=== PATIENT | female | born 1985 | race Caucasian/White ===

== ENCOUNTER → 2020-07-22 09:15 | Outpatient (BNVA) | payer OTHER, SELFPAY | PROVIDERS: PCP Nurse Practitioner Family; Referring Provider Nurse Practitioner Family; Visit Provider Orthopaedic Surgery | DX: M25.461 Effusion, right knee (principal) | CPT/HCPCS: 20610; 99213; J1100 ==

== ENCOUNTER 2020-08-03 15:36 | Outpatient (REF) | payer OTHER, SELFPAY ==
--- NOTE | 2020-08-03 15:39 | MR_ITS ---
EXAMINATION: MR KNEE WITHOUT CONTRAST, RIGHT CLINICAL INFORMATION: Effusion. Feels buckling. Pain in the knee with symptoms x 2 years. No injury. COMPARISON: MRI dated 07/24/2017 TECHNIQUE: MRI of the knee without contrast was performed using routine sequences on a high-field scanner. FINDINGS: MENISCI: Medial Meniscus: Intact. Lateral Meniscus: Intact. LIGAMENTS: Cruciate: Intact. Collateral: Intact. EXTENSOR MECHANISM: Intact. ARTICULAR CARTILAGE/BONE: Patellofemoral Compartment: There is a region of chondral fissuring and surface irregularity at the inferior aspect of the medial trochlear facet measuring 1.2 cm transversely. No discrete chondral defects are identified. Medial Compartment: Normal. Lateral Compartment: Normal. JOINT FLUID AND BURSAE: A heterogeneous focus of low signal intensity material is again seen in the medial recess at the patellofemoral compartment with extension into the medial aspect of the patellofemoral compartment joint line. This measures 3.4 x 1.3 x 5.1 cm (transverse x AP x longitudinal), increased in size from 2.3 x 1.3 x 1.8 cm on the prior study. Peripheral foci of more pronounced low signal intensity are present within this lesion inferiorly and laterally. There is minimal pes anserine bursitis. IMPRESSION: Significant growth of the 5.1 cm heterogeneous, low signal intensity intra-articular lesion at the medial recess in the patellofemoral compartment. In the absence of multifocality and clear signs of chronic hemarthrosis, localized nodular synovitis is favored, though pigmented villonodular synovitis (PVNS) is a reasonable possibility and cannot be excluded based upon the imaging findings. Chondral fissuring at the inferior aspect of the medial trochlear facet, adjacent to the aforementioned synovial abnormality.
== END 2020-08-03 15:37 | disposition home or self-care (01) ==
LOC: HO.MRI 15:36
PROVIDERS: Visit Provider Orthopaedic Surgery
DX: M25.469 Effusion, unspecified knee (principal); M25.69 Stiffness of other specified joint, not elsewhere classified
CPT/HCPCS: 73721

== ENCOUNTER → 2020-08-19 09:03 | Outpatient (BNVA) | payer OTHER, SELFPAY | PROVIDERS: Visit Provider Orthopaedic Surgery | DX: M12.261 Villonodular synovitis (pigmented), right knee (principal) | CPT/HCPCS: 99212 ==

== ENCOUNTER 2020-11-02 06:00 | Day surgery (SDC) | payer OTHER, SELFPAY ==
[2020-10-27 11:26] VITALS: BMI 32.9
--- NOTE | 2020-11-01 08:32 | HO.ANESPROP2 ---
Documented by User: Ely Seo 11/01/20 08:33 HPI - Anesthesia Eval Consult details Narrative: 34yo F for Knee Arthroscopy with Synovectomy PMFSH Past Medical History Medical History Asthma Hypertension Knee effusion Villonodular synovitis Family History Family History Father No problems noted. Mother No problems noted. Brother No problems noted. Brother No problems noted. Daughter No problems noted. Son No problems noted. Sister No problems noted. Sister No problems noted. Sister No problems noted. Sister No problems noted. Sister No problems noted. Sister No problems noted. Sister No problems noted. Surgical History Surgical History History of carpal tunnel release History of hysterectomy Social History Social History Alcohol intake: current Alcohol intake frequency: holidays/special occasions only Smoking Status: Never smoker Advance Directives: No Advance Directives Information Provided: No Advance Directives on File: No Current occupational status: employed Current occupation: [employer]-right [employer] Meds Allergies Allergy/AdvReac Type Severity Reaction Status Date / Time No Known Allergies Allergy Verified 11/02/20 06:11 Home Medications Medication Instructions Recorded Confirmed Type albuterol sulfate 2 puff INHALATION Q4-6H PRN 10/27/20 10/27/20 History cholecalciferol (vitamin D3) 25 mcg PO DAILY 10/27/20 10/27/20 History [Vitamin D3] fluticasone propion-salmeterol 1 inh INHALATION BID 10/27/20 10/27/20 History [Wixela Inhub] hydrochlorothiazide 10/27/20 10/27/20 History montelukast [Singulair] 10 mg PO BEDTIME 10/27/20 10/27/20 History Exam Exam Date and Time: November 01, 2020 0832 Height,Weight and Vital Signs: Height 5 ft 2 in Weight 81.647 kg Assessment and Plan Assessment Anesthesia Assessment: Chart Reviewed Documented by User: Fazal Mccurdy MD 11/02/20 07:32 [facility] Past Medical History Medical History Asthma Hypertension Knee effusion Villonodular synovitis Family History Family History Father No problems noted. Mother No problems noted. Brother No problems noted. Brother No problems noted. Daughter No problems noted. Son No problems noted. Sister No problems noted. Sister No problems noted. Sister No problems noted. Sister No problems noted. Sister No problems noted. Sister No problems noted. Sister No problems noted. Surgical History Surgical History History of carpal tunnel release History of hysterectomy Social History Social History Alcohol intake: current Alcohol intake frequency: holidays/special occasions only Smoking Status: Never smoker Advance Directives: No Advance Directives Information Provided: No Advance Directives on File: No Current occupational status: employed Current occupation: [employer]right [employer] Allergies Allergy/AdvReac Type Severity Reaction Status Date / Time No Known Allergies Allergy Verified 11/02/20 06:11 Home Medications Medication Instructions Recorded Confirmed Type albuterol sulfate 2 puff INHALATION Q4-6H PRN 10/27/20 10/27/20 History cholecalciferol (vitamin D3) 25 mcg PO DAILY 10/27/20 10/27/20 History [Vitamin D3] fluticasone propion-salmeterol 1 inh INHALATION BID 10/27/20 10/27/20 History [Wixela Inhub] hydrochlorothiazide 10/27/20 10/27/20 History montelukast [Singulair] 10 mg PO BEDTIME 10/27/20 10/27/20 History Exam Airway Mallampati Class: II TM Dist: >3cm Neck ROM: Full Loose/Missing/Broken Teeth: No Heart: RRR Lungs: NL Other: AO Assessment and Plan Assessment Anesthesia Assessment: Anesthesia Plan Discussed and Chart Reviewed Final Anesthetic Review NPO: Yes ASA Class: II Final Preanesthetic Review: No Changes in Pt Med Stat, Meds/Allgs Chart Reviewed, Consent Obtained/Reviewed and Anes Risks/Benef Reviewed Patient Risk: Intermediate Procedure Risk: Low Anesthetic Plan Anesthetic Plan: GA Disposition: Standard PACU
[2020-11-02] VITALS (7 sets, daily range): BP systolic 119–140; BP diastolic 66–84; PULSE 82–105; RESP 16–22; TEMP 36.7–37.2; O2SAT 94–100
[2020-11-02] MEDS: Lactated Ringers 1,000 ML 100 ML IVCONT (06:36)
--- NOTE | 2020-11-02 07:18 | MHC.SHP ---
Pre-Procedural Eval Section A The patient is an INPATIENT: No Changes since office visit: Yes Patient answered all questions; No Cold of Flu in the past 2 weeks, No New Medical Problems and No Changes in Medication The History & Physical has been completed within 30 days and I have reviewed it.: Yes Section B Chief Complaint: Villondular Synovitis Allergies: Allergies Allergy/AdvReac Type Severity Reaction Status Date / Time No Known Allergies Allergy Verified 11/02/20 06:11 Plan I have reviewed the history and physical and performed a pertinent physical examination on my patient. No changes have occurred unless specified.
[2020-11-02] MEDS: ceFAZolin Sodium/Dextrose,Iso 2 GM/50 ML PIGGYBACK IV (07:37)
--- NOTE | 2020-11-02 08:03 | PM.OP ---
Brief Operative Note Date of Service: 11/02/20 Pre-op diagnosis: right knee PVNS Post-op diagnosis: same Procedure: Resection PVNS, arthroscopic Implants: none Surgeon: Lon Elaine MD Anesthesia: GETA and local Estimated blood loss (mL): 0 Tourniquet time (min): 17 IV fluids (mL): 500 Pathology: other (Synovial mass) Condition: stable Disposition: PACU
[2020-11-02] MEDS: ondansetron HCL 4 MG/2 ML VIAL IVPUSH (08:49)
[2020-11-02] MEDS: Acetaminophen 325 MG TABLET 650 MG PO (08:49)
[2020-11-02] MEDS: oxyCODONE HCl Immed Release 5 MG TABLET PO (08:51)
--- NOTE | 2020-11-02 10:06 | HO.POSTANES ---
Post Anesthesia Evaluation Post Anesthesia Evaluation Vital Signs: Vital Signs Temp Pulse Resp BP Pulse Ox 11/02/20 09:02 99.0 F 93 20 119/78 96 11/02/20 08:47 82 22 H 136/82 99 11/02/20 08:33 96 22 H 126/84 99 11/02/20 08:18 92 18 125/70 94 11/02/20 08:13 101 H 18 128/78 100 11/02/20 08:07 98.1 F 105 H 18 121/66 99 11/02/20 06:30 98.8 F 84 16 140/80 H 98 Anesthesia: General LMA Mental Status: Awake Pain Control: Satisfactory Nausea/Vomiting: None Hydration: Adequate Anesthesia-Related Issues: No Anes. Related Issues (Pt felt dizzy and diaphoretic in D/C area. Improved with cool cloth, fan, rest. No nausea. Improved over time of observation by RN.)
--- NOTE | 2020-11-02 11:41 | PC.NURSE ---
Pallor and diaphoresis at 0925, moved to recliner with leg elevated 120/74-84-16. Husbandry Person called, pt feeling better after 1/2 hour. Fitted for and instructed in crutch walking. VSS 130/62-74-16 @ 10:25, warm, dry, color improved. Feels ready for discharge home. Evaluated and signed out by Anesthesia.
--- NOTE | 2020-11-04 13:43 | OP_ITS ---
SURGEON: Lon Elaine MD PREOPERATIVE DIAGNOSIS: Right knee poly villonodular sclerosis. POSTOPERATIVE DIAGNOSIS: Right knee poly villonodular sclerosis. PROCEDURE PERFORMED: Resection of focal PVNS, arthroscopic. ESTIMATED BLOOD LOSS: None. COMPLICATIONS: ANESTHESIA: General and local. ASSISTANTS: Domingo Acharya. SPECIMENS: TOURNIQUET TIME: 17 minutes. FLUIDS: 500. PATHOLOGY: Sent to lab. DESCRIPTION OF PROCEDURE: The patient was brought to the operating room, placed supine on the operative table and prepped and draped in standard sterile fashion. Time-out was called to identify proper site, proper procedure, proper surgeon. IV antibiotics per weight was administered. I began by exsanguinating the limb and insufflating tourniquet to 300 mmHg. I then made a standard anterolateral stab incision and placed my blunt trocar atraumatically into the patellofemoral joint. Immediately evident was a large anteromedial synovial mass. The surrounding synovium looked healthy. I flexed the knee and made an establishment of anteromedial portal under direct visualization. I then enlarged slightly with a 15 blade and used a grasper to remove large portion of the synovial mass. This was sent to pathology. The remainder was removed with a combination of cautery and shaver. Of note, the patellofemoral joint was pristine. Medial and lateral compartments were also pristine, where for the most part of the pristine, there was a grade 2 lesion in the anterolateral aspect of the medial femoral condyle. This was debrided down, but was superficial. ACL was intact. Synovial mass was essentially in the anteromedial knee space anterior to the femoral condyle. The remaining synovium appeared healthy and normal. All instrumentation was then removed. Portals were closed with nylon. The patient was placed in sterile dressing, extubated, and brought to the recovery room in stable condition. There were no known complications. MD RANDELL Flower/RUBENL / [id number]
== END 2020-11-02 10:35 | disposition home or self-care (01) ==
PROVIDERS: PCP Nurse Practitioner Family; Visit Provider Orthopaedic Surgery
PROC: (CPT 29870; principal; 2020-11-02 07:30)
DX: M12.261 Villonodular synovitis (pigmented), right knee (principal); I10 Essential (primary) hypertension; J45.909 Unspecified asthma, uncomplicated; Z79.51 Long term (current) use of inhaled steroids; Z79.899 Other long term (current) drug therapy
CPT/HCPCS: 29875; 88305; J0171; J0690; J1100; J1170; J2250; J2405; J3010

== ENCOUNTER → 2020-11-17 09:50 | Outpatient (BNVA) | payer OTHER, SELFPAY | PROVIDERS: PCP Nurse Practitioner Family; Visit Provider Physician Assistant | DX: Z47.89 Encounter for other orthopedic aftercare (principal); Z48.02 Encounter for removal of sutures | CPT/HCPCS: 99212 ==

== ENCOUNTER → 2021-02-10 08:51 | Outpatient (BNVA) | payer OTHER, SELFPAY | PROVIDERS: PCP Nurse Practitioner Family; Visit Provider Physician Assistant | DX: M12.20 Villonodular synovitis (pigmented), unspecified site (principal) | CPT/HCPCS: 99212 ==

== ENCOUNTER → 2021-04-14 10:47 | Outpatient (BNVA) | payer OTHER, SELFPAY | PROVIDERS: Visit Provider Physician Assistant | DX: M12.20 Villonodular synovitis (pigmented), unspecified site (principal) | CPT/HCPCS: 20610; J1040 ==

== ENCOUNTER 2025-08-04 11:11 | Emergency (ER) | payer OTHER, SELFPAY ==
[2025-08-04 11:37] VITALS: BP 130/60; PULSE 71; RESP 16; TEMP 36.1; O2SAT 98; BMI 31.8
--- NOTE | 2025-08-04 11:38 | ED.GENADULT ---
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 Mode of arrival: ambulatory Limitations: no limitations and language barrier History of Present Illness ED Provider: HPI narrative: 39-year-old woman presenting with left eye irritation after she states some bleach got in her eye when she was using spray bottle to clean, the area was washed right away at work, she presented rubbing her left eye reporting blurry vision and discomfort Related Data Home Medications ?Medication ?Instructions ?Recorded ?Confirmed albuterol sulfate 90 mcg/actuation 2 puff inhalation Q4-6H PRN 10/27/20 10/27/20 aerosol inhaler Shortness Of Breath Or Wheezing cholecalciferol (vitamin D3) 25 25 mcg PO DAILY 10/27/20 10/27/20 mcg (1,000 unit) capsule (Vitamin D3) fluticasone 100 mcg-salmeterol 50 1 inh inhalation BID 10/27/20 10/27/20 mcg/dose blistr powdr for inhalation (Wixela Inhub) hydrochlorothiazide 10/27/20 10/27/20 montelukast 10 mg tablet 10 mg PO BEDTIME 10/27/20 10/27/20 (Singulair) Previous Rx's ?Medication ?Instructions ?Recorded hydrocodone 5 mg-acetaminophen 325 1 tab PO Q8H PRN post op pain #20 11/02/20 mg tablet ([place]erfield) tabs naproxen 500 mg tablet 500 mg PO BID 30 days #60 tabs 11/04/20 sennosides 8.6 mg capsule (senna) 8.6 mg PO BEDTIME #30 caps 11/04/20 naproxen 500 mg tablet 500 mg PO BID 30 days #60 tabs 04/14/21 ciprofloxacin HCl 0.3 % eye drops See Rx Instructions ophthalmic 08/04/25 (eye) .COMPLEX #2.5 mL Allergies Allergy/AdvReac Type Severity Reaction Status Date / Time oxycodone Allergy Rash Verified 08/04/25 11:46 Review of Systems Constitutional: Constitutional: Reports as per HPI [facility] Past Medical History Medical History Asthma Hypertension Knee effusion Villonodular synovitis Surgical History History of carpal tunnel release History of hysterectomy Family History Family History Father No problems noted. Mother No problems noted. Brother No problems noted. Brother No problems noted. Daughter No problems noted. Son No problems noted. Sister No problems noted. Sister No problems noted. Sister No problems noted. Sister No problems noted. Sister No problems noted. Sister No problems noted. Sister No problems noted. Social History Social History (Updated 04/14/21 @ 11:05 by Otto Almodovar) Alcohol intake: current Alcohol intake frequency: holidays/special occasions only Advance Directives: No Advance Directives Information Provided: Yes Current occupational status: employed Current occupation: right handed[employer] Physical Exam ED Exam Exam: General: ?Appears of stated age ? see eye exam below ? Neck: Supple, no LAD ? Skin: Warm, dry, intact, ? ?Neuro: ?Alert and oriented x3, moving upper and lower extremities symmetrically, no obvious facial asymmetry noted, cranial nerves 2-12 intact Vital Signs: Vital Signs - 24 hr 08/04/25 11:37 Temperature 97 F Pulse Rate 71 Respiratory Rate 16 Blood Pressure 130/60 Pulse Oximetry 98 Oxygen Delivery Method Room Air BMI result Body Mass Index 31.8 Eyes General: appearance normal, both eyes and all related structures Visual Ryan: normal visual ryan by confrontation Periorbital: periorbital findings normal Eyelids: Yes eyelids normal Conjunctivae: conjunctivae normal Sclerae: sclerae normal Corneas: corneas abnormal on the left and diffuse and fluorescein used Pupils: Equal, round and reactive pupils present Direct Ophthalmoscopy: normal light reflex Neuro Cranial nerves: Yes Equal, round and reactive pupils present Course Course Course Narrative: This is a Rapid Medical Examination (RME) performed by María Flores PA-C in triage. Full HPI, ROS, assessment and treatment plan per primary provider in the Main ED. Hx: 39 yo F here for eval of left eye irritation/blurred vision after bleach sprayed into her eye at work [employer]. reports washing her eye out [employer]. admits to stinging sensation to eye. no vision loss. PE: conjunctival injection noted to left eye, +photophobia Plan: irrigation Medical Decision Making Medical Decision Making MDM Narrative: 2:53 PM 08/04/2025 (Dr. Fabrice Sharif): Bleach into left eye, no visual field changes, vision grossly intact at bedside, has corneal abrasion over the visual field I suspect from vigorous irritation and not due to a chemical burn as the edges were irregular, we will update her tetanus, prescribe antibiotics I am recommend follow up with ophthalmology as it evolves the visual field and I would like to make sure she does not develop a corneal ulcer Differential Diagnosis Differential Diagnoses: The differential diagnosis associated with the presentation includes (Chemical burn, corneal abrasion, skin burn, iritis, foreign body) Prescription Management I considered prescription management with: Pain Medication and Antibiotic Discharge Plan Discharge Clinical Impression: Corneal abrasion Instructions: Corneal Abrasion (ED) Additional Instructions: Please do not rub your eye, you can take Tylenol ibuprofen as needed for pain, tetanus has been updated, antibiotics as prescribed, I am providing you with a and number to call and 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, purulent drainage from her eye, visual loss come back to the ER Prescriptions: New ciprofloxacin HCl 0.3 % drops See Rx Instructions .ROUTE .COMPLEX Qty: 2.5 0RF Rx Instructions: put 1-2 drps in affected eye(s) every 2hr up to 8 times/day x2days; then 4 times/day x5days No Action naproxen 500 mg tablet 500 mg PO BID 30 Days Qty: 60 3RF senna 8.6 mg capsule 8.6 mg PO BEDTIME Qty: 30 0RF Rx Instructions: 1-2 tabs po qhs montelukast [Singulair] 10 mg Tablet 10 mg PO BEDTIME fluticasone propion-salmeterol [Wixela Inhub] 100-50 mcg/dose Blister With Device 1 inh INHALATION BID albuterol sulfate 90 mcg/actuation Hfa Aerosol Inhaler 2 puff INHALATION Q4-6H PRN (Reason: Shortness Of Breath Or Wheezing) cholecalciferol (vitamin D3) [Vitamin D3] 25 mcg (1,000 unit) Capsule 25 mcg PO DAILY hydrochlorothiazide hydrocodone-acetaminophen [Deerfield] 5-325 mg tablet 1 tab PO Q8H PRN (Reason: post op pain) Qty: 20 0RF naproxen 500 mg tablet 500 mg PO BID 30 Days Qty: 60 3RF Referrals: Jacob Simpson [Physician, Ophthalmology] - 1 week Referral Note: Sprayed bleach into her left eye that was rubbing, has corneal abrasion involving visual field we would like to be re-evaluated please Clinical Impression: Corneal abrasion Stand Alone Forms: Work/School Release Print Language: Yi
[2025-08-04] MEDS: Diphth,Pertus(ACell),Tet Adult 0.5 ML SYRINGE IM (15:36)
[2025-08-04] MEDS: Fluorescein Sodium STRIP 1 STRIP EYE-LEFT (15:37)
[2025-08-04] MEDS: Tetracaine HCl/PF 0.5% Oph Sol 4 ML DROPS 1 DROP EYE-BOTH (15:37)
[2025-08-04 15:41] VITALS: BP 130/60; PULSE 71; RESP 16; TEMP 36.1; O2SAT 98
--- OUTSIDE RECORDS SUMMARY | 2025-08-04 20:19 | XMS_ITS | Clinical Summary ---
Author Organization [facility] [employer] Address 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 Role Phone Unavailable Primary Care Provider Unavailabl e Encounters Date Type Department Care Team Description 05/04/2025 Population Health Risk Score [facility] ([facility]) Department [address] [id number] Provider, Population Health Generic from Last 3 Months Social History Tobacco Use Types Packs/Day Years Used Date Smoking Tobacco: Never Assessed Comments Unknown Sex and Gender Information Value Date Recorded Sex Assigned at Not on file Legal Sex Female 2:27 AM EDT Gender Identity Not on file Sexual Orientation Not on file Plan of Treatment Health Maintenance Due Date Last Done Comments Depression Screening 1983 SDOH Screening 1983 Disability Screening 01/01/1984 Alcohol/Substance Use Screening 1995 Tobacco Screening 1995 Family Planning (PISQ) 12/30/1998 HPV Vaccines (1 - 3-dose series) 12/30/1998 Hepatitis C Screening 12/30/2001 Hepatitis A Vaccines (1 of 2 - Risk 2-dose series) 12/30/2002 Hepatitis B Vaccines (1 of 3 - 19+ 3-dose series) 12/30/2002 Pap Smear 12/30/2004 Cervical Cancer Screening 12/30/2013 HPV/Cotest 12/30/2013 Pneumococcal Vaccine: Pediatrics (0 to 5 Years) and At-Risk Patients (6 to 49) Years (2 of 2 - PCV) 08/15/2022 08/15/2021 Mammogram 2023 COVID-19 Vaccine (3 - 2024- season) 2025 03/10/2021, 02/13/2021 Influenza Vaccine (#1) 2025 2, 08/15/2021, 08/26/2020, Additional history exists DTaP/Tdap/Td Vaccines (2 - Td or Tdap) 09/15/2026 09/15/2016, 09/15/2016 Zoster Vaccines (1 of 2) 12/30/2033 RSV Patients and Patients Aged 60 years or older (1 - 1-dose 75+ series) 12/30/2058 HIV Screening Completed 08/28/2021, 08/28/2021 HIB Vaccines Aged Out No longer eligi ble based on patient's age to complete this topic IPV Vaccines Aged Out No longer eligi ble based on patient's age to complete this topic Meningococcal B Vaccine Aged Out No l onger eligible based on patient's age to complete this topic Meningococcal Vaccine Aged Out No radu jose eligible based on patient's age to complete this topic RSV under 20 months Aged Out No longe r eligible based on patient's age to complete this topic Rotavirus Vaccines Aged Out No longer eligible based on patient's age to complete this topic
--- OUTSIDE RECORDS SUMMARY | 2025-08-04 20:19 | XMS_ITS | Clinical Summary ---
Author Organization [facility] Address [address] [place] [address] Phone Care Team Providers Care Aeronautical Engineering Technologist Name Role Phone Ania Wang NP Primary Care Provider Unavailabl e Allergies Active Allergy Reactions Criticality Noted Date Comments Oxycodone Itching,Unknown High 08/15/2021 And other symptoms Oxycodone-Acetaminophen 02/21/2025 Encounters Date Type Department Care Team Description 05/18/2025 10:05 AM EDT - 05/18/2025 1:59 PM EDT Emergency [facility] [address] [place] [address] Epigastric pain (Primary Dx); History of bariatric surgery Discharge Disposition: Home or Self Care from Last 3 Months Immunizations Immunization Administration Dates Next Due Tdap Tetanus diptheria acell ular pertussis (Boostrix; Adacel) 7yo and older 02/21/2025 Surgical History Surgery Date Site/Laterality Comments HYSTERECTOMY PROCEDURE: HISTORICAL HYSTERECTOMY Medical History Medical History Date Comments HTN (hypertension) 12/05/2018 DX:HTN (hyper tension) Moderate persistent asthma w ithout complication 11/14/2018 DX:Moderate persistent asthm a without complication SOB (shortness of breath) 11/14/2018 DX:SOB (shortness of breath) GERD (gastroesophageal reflux disease) Social History Tobacco Use Types Packs/Day Years Used Date Smoking Tobacco: Former Smokeless Tobacco: Never Alcohol Use Standard Drinks/Week Comments Not Currently 4 (1 standard drink = 0.6 oz pur e alcohol) Comments Unknown Sex and Gender Information Value Date Recorded Sex Assigned at Not on file Legal Sex Female 9:32 AM EST Gender Identity Not on file Sexual Orientation Not on file Obstetrics History Last Filed Vital Signs Vital Sign Reading Time Taken Comments Blood Pressure 128/74 05/18/2025 1:58 PM EDT Pulse 88 05/18/2025 1:58 PM EDT Temperature 36.7 C (98.1 F) 05/18/2025 1:58 PM EDT Respiratory Rate 16 05/18/2025 1:58 PM EDT Oxygen Saturation 100% 05/18/2025 1:58 PM EDT Inhaled Oxygen Concentration - - Weight 79.4 kg (175 lb) 05/18/2025 12:42 PM EDT Height 167.6 cm (5' 6 ) 05/18/2025 12:42 PM EDT Body Mass Index 28.25 05/18/2025 12:42 PM EDT Plan of Treatment Health Maintenance Due Date Last Done Comments Breast Cancer Screening 1983 Hepatitis A Vaccines (1 of 2 - Risk 2-dose series) 12/30/2002 Hepatitis B Vaccines (1 of 3 - 19+ 3-dose series) 12/30/2002 Cervical Cancer Screening: Pap Smear 12/30/2004 HPV Vaccines (1 - 3-dose SCDM series) 12/30/2010 Pneumococcal Vaccine: Pediatrics (0 to 5 Years) and At-Risk Patients (6 to 49 Years) (2 of 2 - PCV) 08/15/2022 08/15/2021 HIV Screening 09/18/2022 Social Influencers of Health Screening 09/18/2022 Depression Screening 10/14/2024 COVID-19 Vaccine ( season) 2025 03/10/2021, 02/13/2021 Influenza Vaccine (#1) 2025 , 07/16/2022, 08/15/2021, Additional history exists Hypertension/CHF/CAD Annual BMP Blood Test 05/18/2026 05/18/2025, 08/28/2021 Cholesterol Screening (Lipid Panel) 08/28/2026 08/28/2021, 08/28/2021, 07/30/2019 DTaP,Tdap,and Td Vaccines (4 - Td or Tdap) 02/21/2035 02/21/2025, 09/15/2016, 09/15/2016 RSV Immunization Adult Patients (1 - 1-dose 75+ series) 12/30/2058 Hepatitis C Screening Completed 08/28/2021 HIB Vaccines Aged Out No longer eligi ble based on patient's age to complete this topic IPV Vaccines Aged Out No longer eligi ble based on patient's age to complete this topic MMR Vaccines Aged Out No longer eligi ble based on patient's age to complete this topic Meningococcal ACWY Vaccine Aged Out N o longer eligible based on patient's age to complete this topic Meningococcal B Vaccine Aged Out No l onger eligible based on patient's age to complete this topic RSV Immunization Patients Under 20 months Aged Out No longer eligible based on patient's age to complete this topic Varicella Vaccines Aged Out No longer eligible based on patient's age to complete this topic Procedures Procedure Name Priority Date/Time Associated Diagnosis Comments CT ABDOMEN PELVIS W CONTRAST STAT 05/18/2025 12:02 PM EDT POC , URINE DIAGNOSTIC STAT 05/18/2025 11:55 AM EDT MANUAL DIFFERENTIAL - SYSMEX WAM STAT 05/18/2025 10:17 AM EDT CBC WITH AUTO DIFFERENTIAL STAT 05/18/2025 10:17 AM EDT LIPASE STAT 05/18/2025 10:17 AM EDT COMPREHENSIVE METABOLIC PANEL STAT 05/18/2025 10:17 AM EDT CBC AND DIFFERENTIAL STAT 05/18/2025 10:17 AM EDT from Last 3 Months Results * CT Abdomen Pelvis w Contrast (05/18/2025 12:02 PM EDT) Anatomical Region Laterality Modality Body Computed Tomogra phy 05/18/2025 12:1 7 PM EDT Impressions 05/18/2025 12:26 PM EDT Evidence of interval gastric sleeve procedure. No evidence of bowel obstruction or abscess. No ectopic gas. The graft no definite acute abnormality -------- FINAL REPORT -------- Dictated By: James Scott Dictated Date: 05/18/2025 12:17 ET Assigned Physician: James Scott Reviewed and Electronically Signed By: James Scott Signed Date: 05/18/2025 12:26 ET Workstation ID: [id number] Transcribed By: Self Edit Transcribed Date: 05/18/2025 12:17 ET Narrative 05/18/2025 12:26 PM EDT EXAMINATION: CT ABDOMEN/PELVIS WITH IV CONTRAST CLINICAL INFORMATION: Epigastric pain. History of previous gastric bypass. Squeezing pain for the last 4 days. COMPARISON: Portions of previous 04/02/22 TECHNIQUE: Multidetector CT. Helical examination of the abdomen and pelvis. Imaging performed after the IV administration of contrast. Reformatting in the coronal and sagittal planes. DLP: 912 mGy-cm Dose optimization was performed including the use of low-dose iterative reconstruction technique with automatic exposure control based on patient size. Type of contrast: ISOVUE 370 Volume of IV contrast: 90 mL Volume of contrast discarded: 0 mL FINDINGS: LIVER: The right lobe of the liver measures 19.2 cm. This is between 1 and 2 standard deviations above the mean expected. The liver contour is smooth. There is no suspicious focal liver lesion. BILIARY TRACT: The gallbladder wall is minimally thickened. There is no localized pericholecystic fluid. There is no extrahepatic biliary dilation. SPLEEN: No focal abnormality. The spleen measures 12.4 cm. PANCREAS: No suspicious abnormality. ADRENAL GLANDS: No suspicious abnormality. KIDNEYS: No dilation of the intrarenal collecting system. The nephrograms are symmetric. No suspicious renal mass. No opaque renal calculus. URINARY BLADDER: No suspicious abnormality. PELVIC VISCERA: The uterus is not identified and may be surgically absent. There is no suspicious adnexal mass or collection. GASTROINTESTINAL TRACT: There is no localized colonic wall thickening. There is no CT evidence of acute appendicitis. There has been interval gastric sleeve procedure. No significant small bowel dilation. ABDOMINAL WALL: No significant hernia is appreciated. LYMPHOVASCULAR STRUCTURES AND FLUID: There is no abdominal aortic aneurysm. There is enhancement of the celiac axis and SMA proximally. There is no localized fat stranding. There is no omental or mesenteric mass. There are a few nonspecific lymph nodes. VISUALIZED LOWER CHEST: No suspicious abnormality. MUSCULOSKELETAL: No acute or suspicious osseous abnormality. Procedure Note James Scott MD - 05/18/2025 EXAMINATION: CT ABDOMEN/PELVIS WITH IV CONTRAST CLINICAL INFORMATION: Epigastric pain. History of previous gastric bypass. Squeezing pain forthe last 4 days. COMPARISON: Portions of previous 04/02/22 TECHNIQUE: Multidetector CT. Helical examination of the abdomen and pelvis. Imaging performed after the IV administration of contrast. Reformatting in the coronal and sagittal planes. DLP: 912 mGy-cm Dose optimization was performed including the use of low-dose iterativereconstruction technique with automatic exposure control based on patientsize. Type of contrast: ISOVUE 370 Volume of IV contrast: 90 mL Volume of contrast discarded: 0 mL FINDINGS: LIVER: The right lobe of the liver measures 19.2 cm. This is between 1 and2 standard deviations above the mean expected. The liver contour issmooth. There is no suspicious focal liver lesion. BILIARY TRACT: The gallbladder wall is minimally thickened. There is nolocalized pericholecystic fluid. There is no extrahepatic biliarydilation. SPLEEN: No focal abnormality. The spleen measures 12.4 cm. PANCREAS: No suspicious abnormality. ADRENAL GLANDS: No suspicious abnormality. KIDNEYS: No dilation of the intrarenal collecting system. The nephrogramsare symmetric. No suspicious renal mass. No opaque renal calculus. URINARY BLADDER: No suspicious abnormality. PELVIC VISCERA: The uterus is not identified and may be surgicallyabsent. There is no suspicious adnexal mass or collection. GASTROINTESTINAL TRACT: There is no localized colonic wall thickening.There is no CT evidence of acute appendicitis. There has been interval gastric sleeve procedure. No significant small bowel dilation. ABDOMINAL WALL: No significant hernia is appreciated. LYMPHOVASCULAR STRUCTURES AND FLUID: There is no abdominal aorticaneurysm. There is enhancement of the celiac axis and SMA proximally.There is no localized fat stranding. There is no omental or mesentericmass. There are a few nonspecific lymph nodes. VISUALIZED LOWER CHEST: No suspicious abnormality. MUSCULOSKELETAL: No acute or suspicious osseous abnormality. IMPRESSION: Evidence of interval gastric sleeve procedure. No evidence of bowelobstruction or abscess. No ectopic gas. The graft no definite acuteabnormality -------- FINAL REPORT -------- Dictated By: James Scott Dictated Date: 05/18/2025 12:17 ET Assigned Physician: James Scott Reviewed and Electronically Signed By: James Scott Signed Date: 05/18/2025 12:26 ET Workstation ID: [id number] Transcribed By: Self Edit Transcribed Date: 05/18/2025 12:17 ET Chloé Sanchez METAL WORK DUCT INSTALLER IMG CT PROCEDURES Final Result * POC , urine manually resulted (05/18/2025 11:55 AM EDT) Urine Urine specimen obtained by clean catch procedure / Unknown 05/18/2025 11:55 AM EDT Chloé Sanchez METAL WORK DU[employer] INSTALLER POINT OF CARE TEST ENTER/EDIT O RDERABLES Final Result * (ABNORMAL) Manual differential (05/18/2025 10:17 AM EDT) Neutrophils % 32.0 % LAB HEMETOLOGY METHOD 05/18/2025 12:55 PM [facility] Lymphocytes % 56.0 % LAB HEMETOLOGY METHOD 05/18/2025 12:55 PM [facility] Reactive Lymphocyte 7.00 % LAB HEMETOLOGY METHOD 05/18/2025 12:55 PM [facility] Monocytes % 5.0 % LAB HEMETOLOGY METHOD 05/18/2025 12:55 PM [facility] Eosinophils % 0.0 % LAB HEMETOLOGY METHOD 05/18/2025 12:55 PM [facility] Basophils % 0.0 % LAB HEMETOLOGY METHOD 05/18/2025 12:55 PM [facility] Neutrophils Absolute Manual 3.04 1.50 - 7.00 K/mcL LAB HEMETOLOGY METHOD 05/18/2025 12:55 PM [facility] Lymphocytes Absolute 5.32(H) 1.00 - 5.00 K/mcL LAB HEMETOLOGY METHOD 05/18/2025 12:55 PM EDT [facility] Reactive Lymph Abs Manual 0.67(H) 0.00 - 0.00 lym LAB HEMETOLOGY METHOD 05/18/2025 12:55 PM EDT [facility] Monocytes Absolute Manual 0.48 0.20 - 1.00 K/mcL LAB HEMETOLOGY METHOD 05/18/2025 12:55 PM EDT [facility] Eosinophils Absolute Manual 0.00 0.00 - 0.50 K/[facility] LAB HEMETOLOGY METHOD 05/18/2025 12:55 PM EDT [facility] Basophils Absolute Manual 0.00 0.00 - 0.20 K/[facility] LAB HEMETOLOGY METHOD 05/18/2025 12:55 PM EDT [facility] Rbc Morphology Consistent with indices Consistent with indices, Normal for LAB HEMETOLOGY METHOD 05/18/2025 12:55 PM EDT [facility] Platelet Morphology - WAM See Note(A) Normal LAB HEMETOLOGY METHOD 05/18/2025 12:55 PM EDT [facility] Comment:PLT: Normal Blood Venous blood specimen / Unknown Venipuncture / Unknown 05/18/2025 10:17 AM EDT 05/18/2025 10:46 AM EDT us Gustabo Jacobson MD LAB BLOOD ORDERABLES Final Resu lt [facility] [address] [place] [address], * (ABNORMAL) CBC auto differential (05/18/2025 10:17 AM EDT) WBC 9.5 4.8 - 10.8 K/mcL LAB HEMETOLOGY METHOD 05/18/2025 12:55 PM EDT [facility] RBC 5.50(H) 3.80 - 4.80 M/mcL LAB HEMETOLOGY METHOD 05/18/2025 12:55 PM EDT [facility] Hemoglobin 16.1(H) 11.5 - 16.0 g/dL LAB HEMETOLOGY METHOD 05/18/2025 12:55 PM EDT [facility] Hematocrit 44.7 35.0 - 47.0 % LAB [facility]EMETOLOGY [facility] MCV 81.9 79.0 - 98.0 FL LAB HEMETOLOGY METHOD 05/18/2025 12:55 PM EDT [facility] MCH 29.5 27.0 - 32.0 pcg LAB HEMETOLOGY METHOD [facility] MCHC 36.0 32.0 - 37.0 g/dL LAB HEMETOLOGY METHOD 05/18/2025 12:55 PM [facility] RDW 11.6 11.0 - 15.0 % LAB HEMETOLOGY METHOD [facility]/18[facility]2025 [facility] Platelets 311 130 - 400 K/mcL LAB HEMETOLOGY METHOD [facility]/18[facility]2025 [facility] MPV 9.2 7.0 - 11.0 FL LAB HEMETOLOGY METHOD 05/18/2025 12:55 PM [facility] NRBC 0.0 <1.0 % LAB HEMETOLOGY METHOD 05/18/2025 12:55 PM [facility] NRBC Absolute 0.00 <0.10 K/mcL LAB HEMETOLOGY METHOD 05/18/2025 12:55 PM [facility] Blood Venous blood specimen / Unknown Venipuncture / Unknown 05/18/2025 10:17 AM EDT 05/18/2025 10:46 AM EDT us Gustabo Jacobson MD LAB BLOOD ORDERABLES Final Resu lt Performing Organization Address [facility]/ZIP Co de Phone Number [facility] [address] [place] [address], * Lipase (05/18/2025 10:17 AM EDT) Pathologist [facility] Lipase 28 13 - 75 unit/L LAB CHEMISTRY METHOD 05/18/2025 11:28 AM EDT [facility] Blood Venous blood specimen / Unknown Venipuncture / Unknown 05/18/2025 10:17 AM EDT 05/18/2025 10:45 AM EDT Gustabo Jacobson MD LAB BLOOD ORDERABLES Final Resu lt Performing Organization Address [facility]/ZIP Co de Phone Number [facility] [address] [place] [address], [place] [phone] * (ABNORMAL) Comprehensive metabolic panel (05/18/2025 10:17 AM EDT) Pathologist [facility] Sodium 132(L) 133 - 145 mmol/L LAB CHEMISTRY METHOD 05/18/2025 11:28 AM [facility] Potassium 3.6 3.5 - 5.5 mmol/L LAB CHEMISTRY METHOD 05/18/2025 11:28 AM [facility] Comment:Hemolysis present Chloride 98 96 - 110 mmol/L LAB CHEMISTRY METHOD 05/18/2025 11:28 AM [facility] CO2 25 21 - 32 mmol/L LAB CHEMISTRY METHOD 05/18/2025 11:28 AM [facility] Anion Gap 9 3 - 11 LAB CHEMISTRY METHOD 05/18/2025 11:28 AM [facility] Glucose 140(H) 70 - 100 mg/dL LAB CHEMISTRY METHOD 05/18/2025 11:28 AM [facility] BUN 11 5 - 25 mg/dL LAB CHEMISTRY METHOD 05/18/2025 11:28 AM [facility] Creatinine 0.96 0.50 - 1.10 mg/dL LAB CHEMISTRY METHOD 05/18/2025 11:28 AM [facility] eGFR 76 >=60 mL/min/1. 73m2 LAB CHEMISTRY METHOD 05/18/2025 11:28 AM [facility] Comment:Calculation based on the Chronic Kidney Disease Epidemiology Collaboration (CKD-EPI) equation refit without adjustment for race. BUN/Creatinine Ratio 11.5 LAB CHEMISTRY METHOD 05/18/2025 11:28 AM [facility] Calcium 9.4 8.5 - 10.5 mg/dL LAB CHEMISTRY METHOD 05/18/2025 11:28 AM [facility] AST (SGOT) 41 10 - 42 unit/L LAB CHEMISTRY METHOD 05/18/2025 11:28 AM [facility] Comment:Hemolysis present ALT (SGPT) 56 10 - 60 unit/L LAB CHEMISTRY METHOD 05/18/2025 11:28 AM [facility] Alkaline Phosphatase 109 42 - 121 unit/L LAB CHEMISTRY METHOD 05/18/2025 11:28 AM [facility] Total Protein 8.4(H) 6.0 - 8.0 g/dL LAB CHEMISTRY METHOD 05/18/2025 11:28 AM [facility] Albumin 4.1 3.2 - 5.0 g/dL LAB CHEMISTRY METHOD 05/18/2025 11:28 AM [facility] Total Bilirubin 0.6 0.0 - 1.4 mg/dL LAB CHEMISTRY METHOD 05/18/2025 11:28 AM [facility] Blood Venous blood specimen / Unknown Venipuncture / Unknown 05/18/2025 10:17 AM EDT 05/18/2025 10:45 AM EDT us Gustabo Jacobson MD LAB BLOOD ORDERABLES Final Resu lt [facility] [address] [place] [address], [place] [phone] from Last 3 Months Insurance MEDICAID - [place] Care Teams Aeronautical Engineering Technologist Relationship Specialty Start Date End Date Ania Wang NP Need Updated Address PCP - General 12/24/18
== END 2025-08-04 15:44 | disposition home or self-care (01) ==
PROVIDERS: Emergency Provider Emergency Medicine
DX: S05.02XA Injury of conjunctiva and corneal abrasion without foreign body, left eye, initial encounter (principal); H53.143 Visual discomfort, bilateral; X58.XXXA Exposure to other specified factors, initial encounter; Y93.9 Activity, unspecified; Y92.9 Unspecified place or not applicable; Y99.0 Civilian activity done for income or pay; Z23 Encounter for immunization; Z79.899 Other long term (current) drug therapy
CPT/HCPCS: 90471; 90715; 99283; 99284